=== PATIENT | female | born 1995 | race African-American/Black ===

== ENCOUNTER 2023-11-26 09:05 | Emergency (ER) | payer MEDICAID ==
[~2023-11-26] VITALS: Ht 162.6 cm; Wt 92.4 kg
[2023-11-26 09:16] VITALS: BP 120/82; PULSE 81; RESP 16; O2SAT 98
[2023-11-26] MEDS ORDERED: BACDST PO (09:54)
[2023-11-26] MEDS ORDERED: TRAM50TA2 PO (09:54)
== END 2023-11-26 09:59 | disposition home or self-care (01) ==
LOC: ER 09:05
DX: H66.92 Otitis media, unspecified, left ear (principal); Z88.0 Allergy status to penicillin; Z88.6 Allergy status to analgesic agent

== ENCOUNTER 2024-01-07 22:23 | Emergency (ER) | payer MEDICAID ==
[~2024-01-07] VITALS: Ht 165.1 cm; Wt 88.5 kg
[~2024-01-07 22:23] MED LIST: BACDST PO; TRAM50TA2 PO
[2024-01-07 23:00] VITALS: BP 137/74; PULSE 86; RESP 16; TEMP 98.6; O2SAT 97
[2024-01-08] MEDS ORDERED: HYDR-4902 PO (00:01)
[2024-01-08] MEDS ORDERED: CLIN-203 PO (00:01)
[2024-01-08] MEDS ORDERED: OFL50TS OT (00:01)
== END 2024-01-08 00:38 | disposition home or self-care (01) ==
LOC: ER 22:23
DX: H66.003 Acute suppurative otitis media without spontaneous rupture of ear drum, bilateral (principal); Z88.0 Allergy status to penicillin; Z88.6 Allergy status to analgesic agent

== ENCOUNTER 2024-02-09 11:19 | Emergency (ER) | payer MEDICAID ==
[~2024-02-09] VITALS: Ht 165.1 cm; Wt 90.3 kg
[~2024-02-09 11:19] MED LIST changes: +CLIN-203 PO; +HYDR-4902 PO; +OFL50TS OT
[2024-02-09 14:07] VITALS: BP 121/84; PULSE 78; RESP 16; TEMP 99.4; O2SAT 99
[2024-02-09] MEDS: HYDROcodone-ACET 5/325MG TAB PO ONE (15:12)
[2024-02-09] MEDS ORDERED: CLIN1CAP70 PO (15:15)
[2024-02-09] MEDS ORDERED: HYDR-4902 PO (15:15)
== END 2024-02-09 15:21 | disposition home or self-care (01) ==
LOC: ER 11:19
DX: H66.92 Otitis media, unspecified, left ear (principal); R59.0 Localized enlarged lymph nodes; Z88.0 Allergy status to penicillin; Z88.6 Allergy status to analgesic agent

== ENCOUNTER 2024-02-20 14:28 | Emergency (ER) | payer MEDICAID ==
[~2024-02-20] VITALS: Ht 162.6 cm; Wt 90.0 kg
[~2024-02-20 14:28] MED LIST changes: +CLIN1CAP70 PO
[2024-02-20 14:58] VITALS: BP 134/82; PULSE 74; RESP 16; O2SAT 98
[2024-02-20] MEDS ORDERED: CLIN1CAP70 PO (16:04)
[2024-02-20] MEDS ORDERED: COR10OTS OT (16:04)
== END 2024-02-20 17:48 | disposition left against medical advice (07) ==
LOC: ER 14:28
DX: H66.003 Acute suppurative otitis media without spontaneous rupture of ear drum, bilateral (principal); Z88.8 Allergy status to other drugs, medicaments and biological substances; Z88.0 Allergy status to penicillin; Z79.899 Other long term (current) drug therapy

== ENCOUNTER 2024-02-21 11:17 | Emergency (ER) | payer MEDICAID ==
[~2024-02-21] VITALS: Ht 165.1 cm; Wt 88.6 kg
[~2024-02-21 11:17] MED LIST changes: +COR10OTS OT
[2024-02-21 12:14] VITALS: BP 133/96; PULSE 71; RESP 12; TEMP 97.9; O2SAT 98
== END 2024-02-21 13:43 | disposition home or self-care (01) ==
LOC: ER 11:17
DX: H66.003 Acute suppurative otitis media without spontaneous rupture of ear drum, bilateral (principal); Z88.0 Allergy status to penicillin; Z88.6 Allergy status to analgesic agent

== ENCOUNTER 2024-06-22 19:46 | Emergency (ER) | payer MEDICAID ==
[~2024-06-22] VITALS: Ht 165.1 cm; Wt 83.7 kg
[2024-06-22 20:23] LABS: Basophils # (auto) 0 10 ^3/uL (0-0.2); Basophils % (auto) 0.5 % (0.0-2.0); Eosinophils # (auto) 0.2 10 ^3/uL (0-0.8); Eosinophils % (auto) 3.3 % (0.0-7.0); Hematocrit 39.7 % (36.0-46.0); Hemoglobin 13.5 g/dL (12.2-16.2); Lymphocytes # (auto) 2.7 10 ^3/uL (0.4-5.4); Lymphocytes % (auto) 44.4 % (10.0-50.0); Mean Corpuscular Volume 94.1 fL (80.0-100.0); Monocytes # (auto) 0.3 10 ^3/uL (0-1.3); Monocytes % (auto) 4.6 % (0.0-12.0); Neutrophils # (auto) 2.9 10 ^3/uL (1.6-8.6); Neutrophils % (auto) 47.2 % (37.0-80.0); Nucleated Red Blood Cells % 0.2 %; Platelet Count (auto) 278 10^3/uL (140-450); Red Blood Cells 4.22 10^6/uL (4.0-5.20); Red Cell Distribution Width 13.5 % (11.8-14.3); White Blood Cell 6.2 10^3/uL (4.4-10.8)
[2024-06-22 20:32] LABS: Chloride 105 mmol/L (98-107); Potassium 3.6 mmol/L (3.5-5.1); Sodium 139 mmol/L (136-145)
[2024-06-22 20:33] LABS: Anion Gap 8 (5-15); Calcium 9.8 mg/dL (8.7-10.4); Carbon Dioxide 26 mmol/L (20-31)
[2024-06-22 20:36] LABS: Urine Bacteria FEW /hpf (None Seen); Urine Blood Negative /uL (Negative); Urine Clarity Clear (Clear); Urine Color Colorless (Yellow); Urine Protein, UAD Negative (Negative); Urine Specific Gravity 1.001 (1.001-1.035); Urine Urobilinogen Normal (Negative); Urine WBC <1 /hpf (0 - 5); Urine pH 6.5 (5.0-9.0)
[2024-06-22 20:38] LABS: BUN/Creatinine Ratio 7.9 (10.0-20.0); Blood Urea Nitrogen 6 mg/dL (9-23); Glucose 98 mg/dL (74-106)
[2024-06-22 20:39] LABS: Magnesium 1.8 mg/dL (1.6-2.6)
[2024-06-22] MEDS: SODIUM CHLORIDE 0.9% 1,000 ML IV ONE (21:25)
[2024-06-22] MEDS: LORazepam 2MG/ML-1ML VIAL IV ONE (21:26)
[2024-06-22] MEDS: ONDANSETRON HCL 4 MG/2 ML VIAL IV ONE (21:26)
[2024-06-22 22:04] VITALS: BP 117/81; PULSE 63; RESP 16; TEMP 98.7; O2SAT 100
== END 2024-06-22 22:07 | disposition home or self-care (01) ==
LOC: ER 19:46
DX: F41.9 Anxiety disorder, unspecified (principal); R10.2 Pelvic and perineal pain; R00.2 Palpitations; Z88.0 Allergy status to penicillin; Z88.6 Allergy status to analgesic agent
CPT/HCPCS: 36415; 80048; 81001; 83735; 84702; 85025; 93005; 96361; 96374; 99284; J2060; J2405; J7030